=== PATIENT | male | born 1980 | race Caucasian/White ===

== ENCOUNTER 2021-08-06 21:34 | Emergency (ER) | payer BC ==
--- NOTE | 2021-08-06 21:46 | ED Physician Documentation ---
PD HPI BACK PAIN - Stated complaint Stated Complaint: BACK PX - History obtained from History obtained from: Patient - History of Present Illness Timing - onset: Enter time (16:00) Timing - details: Abrupt onset, Waxing and waning Pain level now: 9 Location: Mid, Right Quality: Pain Associated symptoms: No: Fever, Weakness, Numbness, Incontinent of urine, Unable to urinate, Hematuria Improves with: Nothing Worsened by: Other (no exacerbating factors) Similar symptoms before: Diagnosis (similar to previous episodes of renal colic) Recently seen: Not recently seen - Additional information Additional information: c/o right back pain that has gradually lowered in location and lateralized to right flank. Onset approximately 4 PM today while camping but without inciting event, no ameliorating nor exacerbating factors. He says this feels the same as prior renal colic although has not needed medical attention for kidney stones in approximately 8 years, has never had to have procedure (removal) of kidney stones. (+) nausea and vomiting. Review of Systems Constitutional: reports: Reviewed and negative Cardiac: reports: Reviewed and negative Respiratory: reports: Reviewed and negative GI: reports: Abdominal Pain (right flank although not abomdinal pain per se), Nausea, Vomiting. denies: Constipation, Diarrhea : denies: Dysuria, Frequency, Hematuria Skin: reports: Reviewed and negative Musculoskeletal: reports: Back pain PD PAST MEDICAL HISTORY - Past Medical History Past Medical History: Yes Cardiovascular: Hypertension : Kidney stones - Past Surgical History General: Appendectomy - Present Medications Home Medications: Ambulatory Orders Medication Instructions Recorded Confirmed Lisinopril [Zestril] 10 mg PO QID 08/06/21 08/06/21 Ondansetron Odt [Zofran Odt] 4 mg TL Q6H PRN #10 tablet 08/06/21 Oxycodone HCl/Acetaminophen 1 each PO Q6HR PRN #14 tablet 08/06/21 [Oxycodone-Acetaminophn 7.5-325] Tamsulosin [Flomax] 0.4 mg PO DAILY #9 cap 08/06/21 metFORMIN [Glucophage] 500 mg PO BID 08/06/21 08/06/21 - Allergies Allergies/Adverse Reactions: Allergies Allergy/AdvReac Type Severity Reaction Status Date / Time No Known Drug Allergies Allergy Verified 08/06/21 21:46 - Living Situation Living Arrangement: reports: At home PD ED PE NORMAL - Vitals Vital signs reviewed: Yes - General General: Alert and oriented X 3, Well developed/nourished, Other (appears to be in painful discomfort) - HEENT HEENT: Moist mucous membranes - Neck Neck: Supple, no meningeal sign - Cardiac Cardiac: RRR, No murmur - Respiratory Respiratory: No respiratory distress, Clear bilaterally - Abdomen Abdomen: Normal bowel sounds, Soft, Non tender - Back Back: No CVA TTP Results - Vitals Vitals: Vital Signs - 24 hr 08/06/21 08/06/21 21:43 23:50 Temperature 36.2 C L 36.7 C Heart Rate 96 76 Respiratory 18 16 Rate Blood Pressure 178/98 H 145/82 H O2 Saturation 98 98 Oxygen O2 Source Room air - Labs Labs: Laboratory Tests 08/06/21 22:20 Urine Color YELLOW Urine Clarity SL. CLOUDY Urine pH 5.0 Ur Specific Minter >=1.030 H Urine Protein 30 H Urine Glucose (UA) 100 H Urine Ketones 40 H Urine Occult Blood LARGE H Urine Nitrite NEGATIVE Urine Bilirubin NEGATIVE Urine Urobilinogen 0.2 (NORMAL) Ur Leukocyte Esterase NEGATIVE Urine RBC TNTC H Urine WBC 0-3 Ur Squamous Epith Cells RARE Squamous Urine Bacteria Rare Ur Microscopic Review INDICATED Urine Culture Comments NOT INDICATED - Rads (name of study) CT A/P Radiology: Prelim report reviewed, See rad report PD MEDICAL DECISION MAKING - ED course Complexity details: reviewed results, re-evaluated patient, considered differential, d/w patient ED course: Right ureteral stone, 3mm at UVJ as well as 4mm distal third of ureter. Bilateral intrarenal stones noted incidentally. His pain is well controlled with one dose each of dilaudid (1 mg IV), zofran 4mg IV. He is also given 1 liter NS bolus and 0.4 mg tamsulosin PO. Results reviewed with patient, he is in NAD and reports excellent symptom relief, comfortable with d/c home. I am prescribing a short course of short-acting opioid pain medication for this patient. I have reviewed the patients CHEMICAL INSPECTOR and no concerning findings were noted. I have discussed that the opioids are for short term therapy only, and will not be refilled from the ED. Departure - Departure Disposition: 01 Home, Self Care Clinical Impression: Renal colic on right side Condition: Good Instructions: ED Stone Renal W Colic Follow-Up: Phu Oscar MD [Primary Care Provider] - Prescriptions: Oxycodone HCl/Acetaminophen [Oxycodone-Acetaminophn 7.5-325] 1 each PO Q6HR PRN #14 tablet PRN Reason: Pain Tamsulosin [Flomax] 0.4 mg PO DAILY #9 cap Ondansetron Odt [Zofran Odt] 4 mg TL Q6H PRN #10 tablet PRN Reason: Nausea / Vomiting Comments: Follow up with a urologist. This might require a referral, which usually is provided by a primary care provider. If you need such a referral, contact your insurance provider to inquire as to how to go about obtaining one. You can also follow up with your primary care provider instead, for reevaluation and then discussion about whether referral to a urologist is indicated. Prescriptions for oxycodone with acetaminophen, flomax (to help pass the kidney stone), and ondansetron (anti-nausea medication) have been electronically submitted to [facility]. I am prescribing a short course of narcotic pain medication for you. These are potentially dangerous and addictive medications that should be used carefully. These medications may constipate you. Take an mfby-ixu-jutkqyj stool softener (docusate) twice daily with plenty of water while taking these medications. If you go 24 hours without a bowel movement, take aiyg-blv-gaadlal miralax, per package instructions. Do not drink or drive while taking these medications. If you received narcotic or sedating medications while in the emergency department, do not drive for 24 hours. Store this medication in a safe, secure place and out of reach of children. It is a violation of federal law to give or sell this medication to another person or to use in a manner other than prescribed. The ED will not refill narcotic prescriptions, including prescriptions lost or stolen. To dispose of unwanted medications: 1. [facility] [address] in [place] has a medication drop box. They accept prescription medications (in pill form) Sunday through Sunday 9:00 a.m. to 5:00 p.m. 2. The [facility] accepts prescription medications (in pill form only) for disposal year round. Call for more information. 3. Contact the [facility] for the next [facility] sponsored prescription drug collection event. , [phone], or [phone]; Discharge Date/Time: 08/06/21 23:50
[2021-08-06] MEDS: KETOROLAC 30 MG/ML VIAL IVP STA (22:13)
[2021-08-06] MEDS: ONDANSETRON 4 MG/2 ML VIAL IVP STA (22:13)
[2021-08-06] MEDS: HYDROmorphone 1 MG/ML CARPUJECT IVP STA (22:14)
[2021-08-06] MEDS: SODIUM CHLORIDE 0.9% 1,000 ML IV STA (22:14)
[2021-08-06] MEDS: TAMSULOSIN 0.4 MG CAPSULE PO STA (22:14)
[2021-08-06 22:25] LABS: BILIRUBIN,URINE NEGATIVE (NEGATIVE); GLUCOSE, URINE (UA) 100 mg/dL (NEGATIVE); KETONES,URINE (UA) 40 mg/dL (NEGATIVE); LEUKOCYTE ESTERASE, URINE NEGATIVE (NEGATIVE); NITRITE,URINE NEGATIVE (NEGATIVE); OCCULT BLOOD,URINE LARGE (NEGATIVE); PROTEIN,URINE 30 mg/dL (NEGATIVE); UROBILINOGEN,URINE 0.2 (NORMAL) E.U./dL (NORMAL)
[2021-08-06 22:31] LABS: CLARITY,URINE SL. CLOUDY (CLEAR)
[2021-08-06 22:41] LABS: BACTERIA,URINE Rare /HPF (None Seen); RBC,URINE TNTC /HPF (0-5); SQUAMOUS EPITHELIAL CELL,UR RARE Squamous (<= Few); WBC,URINE 0-3 /HPF (0-3)
--- NOTE | 2021-08-06 22:47 | CT Report ---
PROCEDURE: Abdomen/Pelvis WO INDICATIONS: right flank pain TECHNIQUE: Noncontrast 5 mm thick sections acquired from the diaphragms to the symphysis. 5 mm coronal and sagi ttal reformats were then performed. For radiation dose reduction, the following was used: automated exposure control, adjustment of mA and/or kV according to patient size. COMPARISON: None. FINDINGS: Image quality: Excellent. ABDOMEN: Lung bases: Lung bases are clear. Heart size is normal. Solid organs: There is geographic fatty infiltration, involving the right hepatic lobe. Gallbladder a ppears normal. Pancreas is normal in contours. The spleen is normal in size. No adrenal nodules. Ther e is a 4 mm calcification in the mid right ureter at the level of the pelvic brim. An additional 3 mm calculus is seen within or adjacent to the right ureterovesicular junction. There is mild right hydr oureteronephrosis and perinephric fat stranding. A 14 mm branching calculus is seen at the inferior p ole of the right kidney and there is an additional adjacent 6 mm nonobstructing calculus. A 7 mm nono bstructing calculus is seen in the inferior pole of the left kidney. Peritoneum and bowel: Unenhanced bowel loops demonstrate normal wall thickness and caliber. No free fluid or air. Nodes and vessels: No retroperitoneal or mesenteric adenopathy by size criteria. Aorta and inferior vena cava are normal in caliber. Miscellaneous: No ventral hernias. PELVIS: Genitourinary: Bladder wall thickness is normal. Coarse calcifications are seen in the prostate Miscellaneous: No inguinal hernias or adenopathy. Bones: No suspicious bony lesions. No vertebral body compression fractures. Multilevel degenerativ e changes are seen in the spine. IMPRESSION: 1.Right mid ureteral 4 mm calculus with mild right hydroureteronephrosis and perinephric fat strandin g. An additional 3 mm calculus is seen at the right ureterovesicular junction or within the adjacent posterior portion of the bladder. 2.Additional bilateral nonobstructing renal calculi. Reviewed by: Melvin Faye MD on 08/06/2021 10:46 PM PDT Approved by: Melvin Faye MD on 08/06/2021 10:46 PM PDT Station ID: [id number]
[2021-08-06] MEDS: oxyCODONE/ACET 5/325 Prepack 4 PO STA (23:41)
[2021-08-06] MEDS: ONDANSETRON ODT 4 MG Prepack 2 TL STA (23:41)
[2021-08-06 23:55] VITALS: BP 145/82
== END 2021-08-06 23:50 | disposition home or self-care (01) ==
LOC: ED 21:34
DX: N13.2 Hydronephrosis with renal and ureteral calculous obstruction (principal)
CPT/HCPCS: 36415; 74176; 81001; 96374; 96375; 99284; A9270; J1170; 81003; 87086